=== PATIENT | male | born 1990 | race Two or more races ===

== ENCOUNTER 2017-04-21 11:26 | Emergency (ER) | payer OTHER ==
[2017-04-21] MEDS ORDERED: Ketorolac 30 MG/ML SDV IVPUSH ONE (11:57)
[2017-04-21] MEDS ORDERED: Sodium Chloride 0.9% 1,000 ML IV SCH (12:00)
[2017-04-21 13:08] LABS: CHLORIDE,CL 103 mmol/L (101-111); SODIUM,NA 140 mmol/L (135-145)
--- NOTE | 2017-04-21 14:39 | EDM.PDOC ---
Scribed by Vanita Stern 04/21/17 1301 for June Apodaca NP ED HPI GENERAL MEDICAL PROBLEM - General Chief Complaint: Genitourinary Problem Stated Complaint: RT KIDNEY Time Seen by Provider: 04/21/17 12:10 Source of Information: Reports: Patient, RN, RN Notes Reviewed History Limitations: Reports: No Limitations, Language Barrier - History of Present Illness INITIAL COMMENTS - FREE TEXT/NARRATIVE: Pt presents to the ER with c/o right flank pain and right groin pain. He admits pain with urination. This pain he rates a 6-8/10, beginning this morning. He denies fever, chills, N/V/D. Onset: Today, Sudden Location: Reports: Abdomen, Back Severity: Moderate Improves with: Reports: None Worsens with: Reports: None Associated Symptoms: Reports: No Other Symptoms Right Flank Pain Score (Numeric/FACES): 8 - Related Data Allergies Allergy/AdvReac Type Severity Reaction Status Date / Time No Known Allergies Allergy Verified 04/21/17 11:32 Home Meds: Home Meds . [No Known Home Meds] 04/21/17 [History] Past Medical History HEENT History: Reports: None Cardiovascular History: Reports: None Respiratory History: Reports: None Gastrointestinal History: Reports: None Genitourinary History: Reports: None Musculoskeletal History: Reports: None Neurological History: Reports: None Psychiatric History: Reports: None Endocrine/Metabolic History: Reports: None Dermatologic History: Reports: None - Past Surgical History HEENT Surgical History: Reports: None GI Surgical History: Reports: None ED ROS GENERAL - Review of Systems Review Of Systems: ROS reveals no pertinent complaints other than HPI. ED EXAM, RENAL/ - Physical Exam Exam: See Below Exam Limited By: No Limitations General Appearance: Alert, WD/WN, No Apparent Distress Eye Exam: Bilateral Eye: Normal Inspection Ears: Normal External Exam, Hearing Grossly Normal Nose: Normal Inspection Throat/Mouth: Normal Inspection, Normal Voice, No Airway Compromise Head: Atraumatic, Normocephalic Neck: Normal Inspection, Supple, Non-Tender, Full Range of Motion Respiratory/Chest: No Respiratory Distress, Lungs Clear, Normal Breath Sounds, No Accessory Muscle Use, Chest Non-Tender Cardiovascular: Normal Peripheral Pulses, Regular Rate, Rhythm, No Edema, No Gallop, No JVD, No Murmur, No Rub GI/Abdominal: Normal Bowel Sounds, Soft, Non-Tender, No Organomegaly, No Distention, No Abnormal Bruit, No Mass (Male) Exam: Deferred Rectal (Males) Exam: Deferred Back Exam: Normal Inspection, Full Range of Motion, CVA Tenderness (R) Extremities: Normal Inspection, Normal Range of Motion, Non-Tender, Normal Capillary Refill, No Pedal Edema Neurological: Alert, Oriented, CN II-XII Intact, Normal Cognition, Normal Gait, Normal Reflexes, No Motor/Sensory Deficits Psychiatric: Normal Affect, Normal Mood Skin Exam: Warm, Dry, Intact, Normal Color, No Rash Lymphatic: No Adenopathy Course - Vital Signs Last Recorded V/S: Last Vital Signs Temp 97.2 F 04/21/17 11:35 Pulse 82 04/21/17 11:35 Resp 18 04/21/17 11:35 BP 163/101 H 04/21/17 11:35 Pulse Ox 99 04/21/17 11:35 - Orders/Labs/Meds Orders: Active Orders 24 hr Category Date Time Status Abdomen Pelvis wo Cont [CT] Urgent Exams 04/21/17 12:43 Taken Sodium Chloride 0.9% [Normal Saline] 1,000 ml Med 04/21/17 12:00 Active IV ASDIRECTED Medication Orders Sodium Chloride (Normal Saline) 1,000 mls @ 999 mls/hr IV ASDIRECTED SELMA Last Admin: 04/21/17 11:55 Dose: 999 mls/hr Labs: Laboratory Tests 04/21/17 04/21/17 04/21/17 Range/Units 11:40 11:50 11:50 WBC 7.9 (5.0-10.0) 10^3/uL RBC 5.22 (4.6-6.2) 10^6/uL Hgb 15.8 (14.0-18.0) g/dL Hct 45.0 (40.0-54.0) % MCV 86.2 (80-100) fL MCH 30.3 (27.0-34.0) pg MCHC 35.1 H (33.0-35.0) g/dL Plt Count 275 (150-450) 10^3/uL Neut % (Auto) 77.0 H (42.2-75.2) % Lymph % (Auto) 18.4 L (20.5-50.1) % [place] % (Auto) 4.2 (2-8) % Eos % (Auto) 0.3 L (1.0-3.0) % Baso % (Auto) 0.1 (0.0-1.0) % Sodium 140 (135-145) mmol/L Potassium 3.5 L (3.6-5.0) mmol/L Chloride 103 (101-111) mmol/L Carbon Dioxide 25.0 (21.0-31.0) mmol/L Anion Gap 15.5 BUN 19 H (7-18) mg/dL Creatinine 1.0 (0.6-1.3) mg/dL Est Cr Clr Drug Dosing 130.15 mL/min Estimated GFR (MDRD) > 60 BUN/Creatinine Ratio 19.00 Glucose 120 H (74-105) mg/dL Calcium 9.6 (8.4-10.2) mg/dl Total Bilirubin 1.0 (0.2-1.0) mg/dL AST 31 (10-42) IU/L ALT 30 (10-60) IU/L Alkaline Phosphatase 48 (42-121) IU/L Total Protein 8.7 H (6.7-8.2) g/dl Albumin 5.2 (3.2-5.5) g/dl Globulin 3.5 Albumin/Globulin Ratio 1.49 Urine Color Kar[place] (YELLOW) Urine Appearance Turbid (CLEAR) Urine pH 8.5 (5.0-9.0) Ur Specific [place] 1.020 (1.005-1.030) Urine Protein 100 H (NEGATIVE) Urine Glucose (UA) Negative (NEGATIVE) Urine Ketones Trace H (NEGATIVE) Urine Occult Blood Large H (NEGATIVE) Urine Nitrite Negative (NEGATIVE) Urine Bilirubin Small H (NEGATIVE) Urine Urobilinogen 0.2 (0.2-1.0) mg/dL Ur Leukocyte Esterase Negative (NEGATIVE) Urine RBC >100 H /HPF Urine WBC 5-10 H (0-5/HPF) /HPF Ur Epithelial Cells Rare /HPF Urine Bacteria Rare (0-FEW/HPF) /HPF Meds: Medications Generic Name Dose Route Start Last Admin Trade Name Freq PRN Reason Stop Dose Admin Sodium Chloride 1,000 mls @ 999 mls/hr 04/21/17 12:00 04/21/17 11:55 Normal Saline IV 999 mls/hr ASDIRECTED SELMA Administration Discontinued Medications Generic Name Dose Route Start Last Admin Trade Name Johann PRN Reason Stop Dose Admin Ketorolac Tromethamine 30 mg 04/21/17 11:57 04/21/17 12:05 Toradol IVPUSH 04/21/17 11:58 30 mg ONETIME ONE Administration - Radiology Interpretation Free Text/Narrative:: Abdomen/Pelvis without contrast: Mild right sided hydroureteronephrosis secondary to a [id number] stone in the distal right ureter, just proximal to the uterovesical junction. Left renal cysts. Likely incidental appendicoliths. Small fat containing umbilical hernia. See rad report CT Results Date: 04/21/17 Departure - Departure Time of Disposition: 14:05 Disposition: Home, Self-Care 01 Condition: Good Clinical Impression: Kidney stone - Discharge Information Instructions: Kidney Stones, [id number], Pain Medicine Instructions, Easy-to- Read Forms: ED Department Discharge Additional Instructions: FOllow up with your primary care facility (clinic) next week. Drink a lot of water. RX: Narco 5/325 - My Orders Last 24 Hours: My Active Orders 04/21/17 12:00 Sodium Chloride 0.9% [Normal Saline] 1,000 ml IV ASDIRECTED 04/21/17 12:43 Abdomen Pelvis wo Cont [CT] Urgent - Assessment/Plan Last 24 Hours: My Active Orders 04/21/17 12:00 Sodium Chloride 0.9% [Normal Saline] 1,000 ml IV ASDIRECTED 04/21/17 12:43 Abdomen Pelvis wo Cont [CT] Urgent I have read and agree with the documentation that has been completed regarding this visit. By signing this record, I attest that the documentation was completed in my physical presence and is an accurate record of the encounter.
== END 2017-04-21 14:31 | disposition home or self-care (01) ==
LOC: DL.ED 11:26
DX: N13.2 Hydronephrosis with renal and ureteral calculous obstruction (principal)
CPT/HCPCS: 36415; 74176; 80053; 81001; 85025; 96361; 96374; 99284; J1885; J7030